=== PATIENT | female | born 2000 | race African-American/Black ===

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

== ENCOUNTER 2018-03-24 11:43 | Emergency (ER) | payer OTHER ==
[~2018-03-24] VITALS: Ht 177.8 cm; Wt 208.2 kg
[~2018-03-24 11:43] MED LIST changes: +AMOXICILLIN500 MG ORAL; +NAPROXEN500 M2 ORAL; +PROMETHAZINE-D118 ML ORAL
[2018-03-24 11:59] VITALS: BP 125/75
[2018-03-24] MEDS ORDERED: Ipratropium 0.02% Inh Soln 2.5ml UD HHN SCH (12:15)
[2018-03-24] MEDS ORDERED: Albuterol ud Inhalation HHN SCH (12:15)
[2018-03-24] MEDS ORDERED: ALBUTEROL SULF8.5 GM INH (12:56)
[2018-03-24] MEDS ORDERED: PREDNISONE20 MG ORAL (12:56)
--- NOTE | 2018-03-24 12:57 | Diagnostic Imaging Report ---
Indication: Dyspnea Comparison: None A single view chest radiograph was obtained. Findings: Cardiomediastinal appearance is within normal limits for age. The lungs are clear. Pulmonary vascularity is appropriate. The diaphragmatic contour is smooth and costophrenic angles are sharp. No pleural effusions are identified. The bones are unremarkable. Impression: No acute findings
[2018-03-24 13:17] VITALS: BP 132/74
--- NOTE | 2018-03-24 14:06 | Emergency Room Report ---
History of Present Illness General Chief Complaint: Chest Pain Source: Patient Present Illness HPI 17-year-old female presents ED complaining of shortness of breath 3 days. History of asthma. Chest tightness. Denies cough. Denies fevers or chills. Denies chest pain. No other aggravating relieving factors. Denies any other associated symptoms Allergies: Coded Allergies: NO KNOWN ALLERGIES (Unverified Allergy, Unknown, 06/18/15) Patient History Past Medical History: asthma Past Surgical History: none Pertinent Family History: none Social History: Denies: smoking, alcohol use, drug use Last Menstrual Period: last month Now: No Immunizations: UTD Reviewed Nursing Documentation: PMH: Agreed; PSxH: Agreed Nursing Documentation-PMH Past Medical History: No History, Except For Hx Asthma: Yes Review of Systems All Other Systems: negative except mentioned in HPI Physical Exam Vital Signs Date Time Temp Pulse Resp B/P (MAP) Pulse Ox O2 Delivery O2 Flow Rate FiO2 03/24/18 11:49 98.4 84 22 125/75 99 Room Air 98.4 03/24/18 12:11 21 Sp02 EP Interpretation: reviewed, normal General Appearance: no apparent distress, alert, GCS 15, non-toxic Head: normocephalic, atraumatic Eyes: bilateral eye normal inspection, bilateral eye PERRL ENT: hearing grossly normal, normal pharynx, no angioedema, normal voice Neck: full range of motion, supple/symm/no masses Respiratory: chest non-tender, decreased breath sounds, speaking full sentences , wheezing Cardiovascular #1: regular rate, rhythm, no edema Cardiovascular #2: 2+ carotid (R), 2+ carotid (L), 2+ radial (R), 2+ radial (L) , 2+ dorsalis pedis (R), 2+ dorsalis pedis (L) Gastrointestinal: normal bowel sounds, non tender, soft, non-distended, no guarding, no rebound Rectal: deferred Genitourinary: normal inspection, no CVA tenderness Musculoskeletal: back normal, gait/station normal, normal range of motion, non- tender Neurologic: alert, oriented x3, responsive, motor strength/tone normal, sensory intact, speech normal Psychiatric: judgement/insight normal, memory normal, mood/affect normal, no suicidal/homicidal ideation Reflexes: 3+ bicep (R), 3+ bicep (L), 3+ tricep (R), 3+ tricep (L), 3+ knee (R) , 3+ knee (L) Skin: normal color, no rash, warm/dry, well hydrated Lymphatic: no adenopathy Medical Decision Making Diagnostic Impression: Primary Impression: Asthma exacerbation Qualified Codes: J45.901 - Unspecified asthma with (acute) exacerbation ER Course Hospital Course 17-year-old female presents to ED complaining of SOB, wheezing Differential diagnoses include: URI, bronchitis, asthma/COPD, pneumonia Clinical course Patient placed on stretcher. After initial history, physical exam reveals a female in no acute distress. Bilateral TM unremarkable. No pharyngeal erythema. No tonsillar exudates. No lymphadenopathy. reduced breath sounds with wheezing given breathing treatments, prednisone CXR shows no acute infiltrate discussed findings with patient. safe for discharge with close outpatient followup Diagnosis - asthma exacerbation Stable and discharged home with prescriptions for albuterol, prednisone. Instructed to followup with PMD. Return to ED if symptoms recur or worsen Chest X-Ray Diagnostic Results Chest X-Ray Diagnostic Results : Chest X-Ray Ordered: Yes # of Views/Limited/Complete: 1 View Indication: Shortness of Breath EP Interpretation: Yes Interpretation: no consolidation, no effusion, no pneumothorax, no acute cardiopulmonary disease Impression: No acute disease Electronically Signed by: Electronically signed by Damian Pollack MD Last Vital Signs Date Time Temp Pulse Resp B/P (MAP) Pulse Ox O2 Delivery O2 Flow Rate FiO2 03/24/18 13:17 98.0 76 24 132/74 100 Room Air 98.4 03/24/18 12:30 21 Status: improved Disposition: HOME, SELF-CARE Condition: Stable Scripts Prednisone* (PREDNISONE*) 20 Mg Tablet 40 MG ORAL DAILY, #10 TAB Prov: Damian Pollack MD 03/24/18 Albuterol Sulfate* (ALBUTEROL SULFATE MDI*) 8.5 Gm Hfa.aer.ad 2 PUFF INH Q6H, #1 EA 0 Refills Prov: Damian Pollack MD 03/24/18 Referrals: [facility] (PCP) Patient Instructions: Form - Asthma Action Plan, Adult Damian Pollack MD Mar 24, 2018 14:06
== END 2018-03-24 13:17 | disposition home or self-care (01) ==
LOC: EMR 12:04
DX: J45.901 Unspecified asthma with (acute) exacerbation (principal)
CPT/HCPCS: 71045; 94640; 94664; 99284; J7512

== ENCOUNTER 2018-05-18 20:26 | Emergency (ER) | payer OTHER ==
[~2018-05-18] VITALS: Ht 172.7 cm; Wt 68.0 kg
[2018-05-18 20:34] VITALS: BP 109/66
[2018-05-18 20:35] VITALS: BP 124/62
[2018-05-18] MEDS: Albuterol ud Inhalation HHN SCH ×3 (20:45→21:16)
[2018-05-18] MEDS ORDERED: Solu-MEDROL 125mg Inj IVP ONE (20:45)
[2018-05-18] MEDS: Ipratropium 0.02% Inh Soln 2.5ml UD HHN SCH ×3 (20:45→21:16)
--- NOTE | 2018-05-18 21:05 | Emergency Room Report ---
History of Present Illness General Chief Complaint: Asthma Source: Patient Present Illness HPI Patient presents emergency department today with severe shortness of breath. Patient has history asthma has been using her inhaler without much improvement. Symptoms have been deteriorating a last couple of days and today last couple hours became very severe. Patient came in for further evaluation. She complains of cough and is speaking in complete sentences. Patient states that she has never been admitted to the hospital for asthma before but she has taken steroids in the past. No other complaints are noted. Symptoms noted to be severe.No other modifying factors. No other associated signs and symptoms. No other complaints were noted. Allergies: Coded Allergies: NO KNOWN ALLERGIES (Unverified Allergy, Unknown, 06/18/15) Patient History Past Medical History: asthma Past Surgical History: none Pertinent Family History: none Social History: Denies: smoking, alcohol use, drug use Last Menstrual Period: currently on Now: No - not sure Reviewed Nursing Documentation: PMH: Agreed; PSxH: Agreed Nursing Documentation-PMH Past Medical History: No Stated History Hx Asthma: Yes Review of Systems All Other Systems: negative except mentioned in HPI Physical Exam Vital Signs Date Time Temp Pulse Resp B/P (MAP) Pulse Ox O2 Delivery O2 Flow Rate FiO2 05/18/18 20:34 98.2 81 18 109/66 100 Room Air 05/18/18 20:42 21 Sp02 EP Interpretation: reviewed, normal General Appearance: alert, moderate distress Head: atraumatic Eyes: bilateral eye normal inspection ENT: normal ENT inspection, hearing grossly normal, normal voice Neck: normal inspection, full range of motion, supple, no bony tend Respiratory: respiratory distress, decreased breath sounds, accessory muscle use, wheezing, expiration, inspiration Cardiovascular #1: no edema, tachycardia Gastrointestinal: normal inspection, normal bowel sounds, non tender, soft, no guarding, no hernia Genitourinary: no CVA tenderness Musculoskeletal: normal inspection, back normal, normal range of motion Neurologic: normal inspection, alert, responsive, speech normal Psychiatric: normal inspection, judgement/insight normal, anxious Skin: normal inspection, normal color, no rash Procedures Critical Care Time Critical Care Time Patient had a critical medical condition which untreated could potentially result in life or limb threatening injury. Total critical care time excluding procedures was approximately 35 minutes. Medical Decision Making Diagnostic Impression: Primary Impression: Asthma Additional Impressions: Asthma attack Asthma exacerbation ER Course Patient presents emergency department today complaining of shortness of breath. Differential diagnoses include acute pneumonia, CHF, acute coronary syndrome, pneumothorax, asthma, COPD flare, just to name a few.Given the severity of the patient's presentation I felt this is a highly complex patient. This patient required extensive workup. Patient however declined laboratory workup. Patient was started on albuterol Atrovent. Patient declined IV so she was given prednisone. Patient appear to be improving. Will sign this case out to Dr. Pollack for final disposition Last Vital Signs Date Time Temp Pulse Resp B/P (MAP) Pulse Ox O2 Delivery O2 Flow Rate FiO2 05/18/18 21:01 78 21 100 Room Air 21 05/18/18 20:34 98.2 109/66 Status: improved Disposition: HOME, SELF-CARE Condition: Stable Dylon Mosher MD May 18, 2018 21:04
[2018-05-18] MEDS ORDERED: ALBUTEROL2.5 MG/3 M HHN (22:45)
[2018-05-18] MEDS ORDERED: ALBUTEROL SULF8.5 GM INH (22:45)
[2018-05-18] MEDS ORDERED: PREDNISONE20 MG ORAL (22:45)
[2018-05-18 22:55] VITALS: BP 124/62
--- NOTE | 2018-05-19 02:08 | Emergency Room Report ---
Physical Exam Vital Signs Date Time Temp Pulse Resp B/P (MAP) Pulse Ox O2 Delivery O2 Flow Rate FiO2 05/18/18 20:34 98.2 81 18 109/66 100 Room Air 05/18/18 20:42 21 Medical Decision Making Diagnostic Impression: Primary Impression: Asthma exacerbation Qualified Codes: J45.901 - Unspecified asthma with (acute) exacerbation ER Course Hospital Course 18-year-old female presents to ED complaining of SOB, wheezing Clinical course Patient initially seen and evaluated by Dr. Mosher; please see his note for full history and physical Patient given breathing treatments, chest x-ray shows no acute process. Patient also said she might be . Denies spotting or cramping pain. Urine negative. On reassessment patient feels better. Reassurance given. Discussed findings with patient. Safe for discharge close outpatient follow-up Diagnosis - asthma exacerbation Stable and discharged home with prescriptions for prednisone, albuterol. Instructed to followup with PMD. Return to ED if symptoms recur or worsen Labs Test 05/18/18 21:50 Urine HCG, Qualitative Negative (NEGATIVE) Chest X-Ray Diagnostic Results Chest X-Ray Diagnostic Results : Chest X-Ray Ordered: Yes # of Views/Limited/Complete: 1 View Indication: Shortness of Breath EP Interpretation: Yes Interpretation: no consolidation, no effusion, no pneumothorax, no acute cardiopulmonary disease Impression: No acute disease Electronically Signed by: Electronically signed by Damian Pollack MD Last Vital Signs Date Time Temp Pulse Resp B/P (MAP) Pulse Ox O2 Delivery O2 Flow Rate FiO2 05/18/18 22:55 98.4 84 20 124/62 100 Room Air 21 Status: improved Disposition: HOME, SELF-CARE Condition: Stable Scripts Prednisone* (PREDNISONE*) 20 Mg Tablet 40 MG ORAL DAILY, #10 TAB Prov: Damian Pollack MD 05/18/18 Albuterol Sulfate* (ALBUTEROL SULFATE HHN*) 2.5 Mg/3 Ml Vial.neb 2.5 MG HHN Q4H PRN for Shortness of Breath, #25 VIAL Prov: Damian Pollack MD 05/18/18 Albuterol Sulfate* (ALBUTEROL SULFATE MDI*) 8.5 Gm Hfa.aer.ad 2 PUFF INH Q6H, #1 EA 0 Refills Prov: Damian Pollack MD 05/18/18 Referrals: [facility] (PCP) Patient Instructions: Asthma, Adult Damian Pollack MD May 19, 2018 02:08
--- NOTE | 2018-05-19 09:59 | Diagnostic Imaging Report ---
Indication: Cough Technique: One view of the chest Comparison: 03/24/2018 Findings: Lungs and pleural spaces are clear. Heart size is upper limits normal. No significant interim change Impression: No acute process This agrees with the preliminary interpretation provided by the emergency room physician
== END 2018-05-18 22:55 | disposition home or self-care (01) ==
LOC: EMR 20:50
DX: J45.41 Moderate persistent asthma with (acute) exacerbation (principal); Z79.51 Long term (current) use of inhaled steroids; Z32.02 Encounter for pregnancy test, result negative
CPT/HCPCS: 71045; 81025; 94640; 94664; 96374; 99284; J7512

== ENCOUNTER 2018-09-18 21:35 | Emergency (ER) | payer MEDICAID, OTHER ==
[~2018-09-18] VITALS: Ht 177.8 cm; Wt 112.9 kg
[~2018-09-18 21:35] MED LIST changes: +ALBUTEROL2.5 MG/3 M HHN
[2018-09-18 22:00] VITALS: BP 96/66
--- NOTE | 2018-09-18 22:00 | NUR ---
ED Nurse Note: pt walked in c/o difficulty breathing started 1 day [employer]. pt stated she is having asthma attack and ran out of inhaler. Wheezes noted. AO4. NAD. VSS.
[2018-09-18] MEDS: Albuterol ud Inhalation HHN SCH ×3 (22:11→22:45)
[2018-09-18] MEDS: Ipratropium 0.02% Inh Soln 2.5ml UD HHN SCH ×3 (22:11→22:45)
[2018-09-18] MEDS ORDERED: PREDNISONE20 MG ORAL (22:55)
[2018-09-18] MEDS ORDERED: ALBUTEROL SULF8.5 GM INH (22:55)
[2018-09-18 23:00] VITALS: BP 86/66
--- NOTE | 2018-09-18 23:00 | NUR ---
ER DISCHARGE NOTE: Patient is cleared to be discharged per ERMD, pt is aox4, on room air, with stable vital signs. pt was given dc and prescription instructions, pt was able to verbalize understanding, pt id band removed. pt is able to ambulate with steady gait. pt took all belongings.
--- NOTE | 2018-09-18 23:27 | Emergency Room Report ---
History of Present Illness General Chief Complaint: Asthma Source: Patient Present Illness HPI 18-year-old female presents ED for evaluation. Complaining of chest tightness and shortness of breath since yesterday. History of asthma. States she ran out of her inhaler. Denies fevers or chills. Denies cough. Denies chest pain. Denies smoking or drug use. Denies sick contacts or recent travel. No other aggravating relieving factors. Denies any other associated symptoms Allergies: Coded Allergies: NO KNOWN ALLERGIES (Unverified Allergy, Unknown, 06/18/15) Patient History Past Medical History: asthma Past Surgical History: none Pertinent Family History: none Social History: Denies: smoking, alcohol use, drug use Last Menstrual Period: jul Now: No - unsure Immunizations: UTD Reviewed Nursing Documentation: PMH: Agreed; PSxH: Agreed Nursing Documentation-PMH Hx Asthma: Yes Review of Systems All Other Systems: negative except mentioned in HPI Physical Exam Vital Signs Date Time Temp Pulse Resp B/P (MAP) Pulse Ox O2 Delivery O2 Flow Rate FiO2 09/18/18 21:52 98.6 96 16 103/66 98 Room Air 09/18/18 22:12 21 Sp02 EP Interpretation: reviewed, normal General Appearance: alert, GCS 15, non-toxic, mild distress, obese Head: normocephalic, atraumatic Eyes: bilateral eye normal inspection, bilateral eye PERRL ENT: hearing grossly normal, normal pharynx, no angioedema, normal voice Neck: full range of motion, supple/symm/no masses Respiratory: chest non-tender, lungs clear, decreased breath sounds, speaking full sentences, wheezing Cardiovascular #1: regular rate, rhythm, no edema Cardiovascular #2: 2+ carotid (R), 2+ carotid (L), 2+ radial (R), 2+ radial (L) , 2+ dorsalis pedis (R), 2+ dorsalis pedis (L) Gastrointestinal: normal bowel sounds, non tender, soft, non-distended, no guarding, no rebound Rectal: deferred Genitourinary: normal inspection, no CVA tenderness Musculoskeletal: back normal, gait/station normal, normal range of motion, non- tender Neurologic: alert, oriented x3, responsive, motor strength/tone normal, sensory intact, speech normal Psychiatric: judgement/insight normal, memory normal, mood/affect normal, no suicidal/homicidal ideation Reflexes: 3+ bicep (R), 3+ bicep (L), 3+ tricep (R), 3+ tricep (L), 3+ knee (R) , 3+ knee (L) Skin: normal color, no rash, warm/dry, well hydrated Lymphatic: no adenopathy Medical Decision Making Diagnostic Impression: Primary Impression: Asthma exacerbation Qualified Codes: J45.901 - Unspecified asthma with (acute) exacerbation ER Course Hospital Course 18-year-old female presents to ED complaining of wheezing. h/o asthma Differential diagnoses include: URI, bronchitis, asthma/COPD, pneumonia Clinical course Patient placed on stretcher. After initial history, physical exam reveals a female in no acute distress. Bilateral TM unremarkable. No pharyngeal erythema. No tonsillar exudates. No lymphadenopathy. Mild wheezing noted on exam, no signs of respiratory distress or retractions. Patient given Prednisone and albutero/atroventl treatment in ED with symptoms improved. Discussed findings with patient. Safe for discharge with close outpatient follow-up. Does not have a PMD. We'll provide referrals. Diagnosis - asthma exacerbation Stable and discharged home with prescriptions for albuterol, prednisone. Instructed to followup with PMD. Return to ED if symptoms recur or worsen Last Vital Signs Date Time Temp Pulse Resp B/P (MAP) Pulse Ox O2 Delivery O2 Flow Rate FiO2 09/18/18 23:02 82 20 100 Room Air 21 09/18/18 21:52 98.6 103/66 Status: improved Disposition: HOME, SELF-CARE Condition: Stable Scripts Prednisone* (PREDNISONE*) 20 Mg Tablet 40 MG ORAL DAILY, #10 TAB Prov: Damian Pollack MD 09/18/18 Albuterol Sulfate* (ALBUTEROL SULFATE MDI*) 8.5 Gm Hfa.aer.ad 2 PUFF INH Q4H PRN for For Cough, #1 EA Prov: Damian Pollack MD 09/18/18 [facility] Patient Instructions: Asthma, Adult Damian Pollack MD Sep 18, 2018 23:27
== END 2018-09-18 23:00 | disposition home or self-care (01) ==
LOC: EMR 22:13
DX: J45.901 Unspecified asthma with (acute) exacerbation (principal)
CPT/HCPCS: 94640; 94664; 99284; J7512